=== PATIENT | male | born 1950 | race Caucasian/White ===

== ENCOUNTER → 2023-12-31 09:48 | Outpatient (REF) | payer MEDICARE, SELFPAY ==
--- NOTE | 2023-12-31 09:54 | CA_ITS ---
Transthoracic Echocardiogram Patient (Last, First, Middle): Nelson Walsh, Gender: Male Date of : 1950 Age: 73 Procedure Date: 12/31/2023 Procedure Type: Transthoracic Echocardiogram Location: OP Height: 187.96 cm Weight: 108.86 kg BSA: 2.35 m2 Heart Rate: 66 bpm BP: 115 / 70 mmHg Long Term: JOSE JUAN Xiao MD: Octavia Zhang MD Pharmaceutical Service Representative: Feliz Kate MD Symptoms: I10 HTN Study Quality: Adequate ECG Rhythm: Sinus Conclusions: - 1. Normal LV systolic function with LVEF of 60-65% with grade 1 diastolic dysfunction 2. Normal cardiac valvular Doppler 3. No gross pericardial effusion Findings Left Ventricle Normal left ventricular size, thickness, and systolic function. The visually estimated ejection fraction is between 60-65%. Spectral Doppler is indicative of an impaired relaxation filling pattern. E/E prime ratio is <8, consistent with normal filling pressures. Evidence suggests grade I (mild) diastolic dysfunction. Peak GLS is -19.2%, within normal limits. Right Ventricle Normal right ventricular cavity size and systolic function. Atria Both atria are normal in size. There is no evidence of interatrial shunt. Aortic Valve Normal aortic valve structure and function. There is no aortic valve stenosis. There is no aortic valve regurgitation. Mitral Valve Normal mitral valve structure and function. There is trace mitral valve regurgitation. There is no mitral valve stenosis. Pulmonic Valve The pulmonic valve is likely normal. There is trace pulmonic valve regurgitation. Tricuspid Valve Normal tricuspid valve structure. Tricuspid regurgitation envelope is inadequate for calculation of right ventricular systolic pressure. Normal right atrial pressure. Great Vessels All visible segments of the aorta are normal in size. The pulmonary artery was not well visualized. There is no dilatation of the ascending aorta measuring 3.40 cm. Venous The inferior vena cava is normal in size and collapses greater than 50% with inspiration. Pericardium/Pleural There is no evidence of pericardial effusion. Prior Study Comparison No prior study available for comparison. Measurements 2D Linear Measurements IVSd: 1.12 0.6-0.9/0.6-1.0 cm LVIDd: 4.75 3.9-5.3/4.2-5.9 cm LVIDd Index: 2.02 2.4-3.2/2.2-3.1 cm/m2 LVIDs: 2.18 2.0-3.6 cm LVPWd: 1.00 0.7-1.1 cm LA Diam: 2.90 2.7-3.8/3.0-4.0 cm LAIDs Index: 1.23 1.5-2.3 cm/m2 LV Mass: 225.02 67-162/88-224 g LV Mass Index: 95.75 43-95/49-115 g/m2 LVOT Diam: 2.20 3.0+(-)1.3 cm 2D Systolic Function EF 4C: 61.20 >55% EF 2C: 65.30 >55% EF BiP: 64.10 >55% Mitral Valve MV Pk E: 0.63 MV PK A: 0.78 MV Decel Time: 266.00 E/A: 0.80 E'Lateral: 6.53 E'Medial: 6.42 E/E' Med: 9.80 E/E' Lat: 9.60 PHT: 78.00 MVA PHT: 2.82 Decel Anderson: 2.37 Aortic Valve AoV Pk Destin: 1.48 AoV Mn Destin: 1.11 AoV VTI: 0.33 AoV Pk Grad: 9.00 Aov Mn Grad: 5.00 PRERNA Cont.VTI: 2.75 LVOT LVOT Pk Destin: 1.19 LVOT Mn Destin: 0.79 LVOT VTI: 0.24 LVOT Pk Grad: 6.00 LVOT Mn Grad: 3.00 LVOT Diam: 2.20 LVOT Area: 3.80 Diastolic Function MV Pk E: 0.63 MV Pk A: 0.78 E/A: 0.80 E'Medial: 6.42 E/E' Med: 9.80 E' Laterial: 6.53 E/E' Lat: 9.60 Right Ventricle TAPSE (mm): 22.60 TVS' Destin: 11.70 Tricuspid Valve RA Press: 3.00 Great Vessels Aorta Sinus of Valsalva: 3.70 2.0-3.5 cm Ao Asc: 3.40 2.1-3.4 cm Pulmonary Valve PV Pk Destin: 1.03 Peak PV Grad: 4.00 Updated in Other Vendor System with Status of Final Feliz Kate MD electronically signed on 12/31/2023 3:57:11 PM with status of Final
== END ==
LOC: HO.CARD 09:48
PROVIDERS: PCP Internal Medicine; Visit Provider Internal Medicine
DX: I10 Essential (primary) hypertension (principal)
CPT/HCPCS: 93306; 93356

== ENCOUNTER → 2023-12-31 09:54 | Outpatient (BNV) | payer MEDICARE, SELFPAY | PROVIDERS: PCP Internal Medicine; Visit Provider Internal Medicine Cardiovascular Disease | DX: I10 Essential (primary) hypertension (principal); I51.89 Other ill-defined heart diseases | CPT/HCPCS: 93306; 93356 ==